=== PATIENT | female | born 1950 | race Caucasian/White ===

== ENCOUNTER 2020-11-11 19:15 | Emergency (ER) | payer MEDICARE, OTHER, SELFPAY ==
[2020-11-11 19:20] VITALS: BP 118/73; PULSE 97; RESP 18; TEMP 37; O2SAT 95; BMI 32.9
== END 2020-11-11 21:12 | disposition left against medical advice (07) ==
LOC: HO.ED 21:10
PROVIDERS: Emergency Provider Emergency Medicine; PCP Pediatrics
DX: Z04.1 Encounter for examination and observation following transport accident (principal)
CPT/HCPCS: 99281; 99282

== ENCOUNTER 2020-12-12 16:09 | Outpatient (REF) | payer MEDICARE, OTHER, SELFPAY ==
[2020-12-12 18:21] LABS: Amphetamine Screen Urine POSITIVE (Not Detect); Barbiturates, Urine Not Detected (Not Detect); Benzodiazepines Screen Urine Not Detected (Not Detect); Cannabinoid Screen Urine Not Detected (Not Detect); Cocaine Screen Urine Not Detected (Not Detect); Fentanyl, urine Not Detected (Not Detect); Opiate Screen Urine Not Detected (Not Detect); Phencyclidine Screen Urine Not Detected (Not Detect)
== END 2020-12-12 16:10 | disposition home or self-care (01) ==
LOC: HO.LAB 16:09
PROVIDERS: PCP Pediatrics; Visit Provider Psychiatry & Neurology Psychiatry
DX: F19.10 Other psychoactive substance abuse, uncomplicated (principal); Z79.899 Other long term (current) drug therapy
CPT/HCPCS: 80307

== ENCOUNTER 2020-12-15 16:32 | Outpatient (REF) | payer MEDICARE, OTHER, SELFPAY ==
[2020-12-15 17:30] LABS: Amphetamine Screen Urine POSITIVE (Not Detect); Barbiturates, Urine Not Detected (Not Detect); Benzodiazepines Screen Urine Not Detected (Not Detect); Cannabinoid Screen Urine Not Detected (Not Detect); Cocaine Screen Urine Not Detected (Not Detect); Fentanyl, urine Not Detected (Not Detect); Opiate Screen Urine Not Detected (Not Detect); Phencyclidine Screen Urine Not Detected (Not Detect)
== END 2020-12-15 16:33 | disposition home or self-care (01) ==
LOC: HO.LAB 16:32
PROVIDERS: Visit Provider Psychiatry & Neurology Psychiatry
DX: F19.10 Other psychoactive substance abuse, uncomplicated (principal); Z79.899 Other long term (current) drug therapy
CPT/HCPCS: 80307

== ENCOUNTER 2020-12-16 14:35 | Outpatient (REF) | payer MEDICARE, OTHER, SELFPAY ==
[2020-12-16 15:40] LABS: Amphetamine Screen Urine POSITIVE (Not Detect)
[2020-12-20 07:19] LABS: Methamphetamine, Urine GC/MS NEGATIVE
== END 2020-12-16 14:36 | disposition home or self-care (01) ==
LOC: HO.LABR 14:35
PROVIDERS: PCP Pediatrics; Visit Provider Psychiatry & Neurology Psychiatry
DX: F19.10 Other psychoactive substance abuse, uncomplicated (principal); Z79.899 Other long term (current) drug therapy
CPT/HCPCS: 80307; 80324

== ENCOUNTER 2020-12-17 16:38 | Outpatient (REF) | payer MEDICARE, OTHER, SELFPAY ==
[2020-12-17 18:02] LABS: Amphetamine Screen Urine POSITIVE (Not Detect)
== END 2020-12-17 16:39 | disposition home or self-care (01) ==
LOC: HO.LABR 16:38
PROVIDERS: PCP Pediatrics; Visit Provider Psychiatry & Neurology Psychiatry
DX: F19.10 Other psychoactive substance abuse, uncomplicated (principal); Z79.899 Other long term (current) drug therapy
CPT/HCPCS: 80307; 80324

== ENCOUNTER 2020-12-19 14:01 | Outpatient (REF) | payer MEDICARE, OTHER, SELFPAY ==
[2020-12-19 15:08] LABS: Amphetamine Screen Urine POSITIVE (Not Detect)
== END 2020-12-19 14:02 | disposition home or self-care (01) ==
LOC: HO.LABR 14:01
PROVIDERS: PCP Pediatrics; Visit Provider Psychiatry & Neurology Psychiatry
DX: F19.10 Other psychoactive substance abuse, uncomplicated (principal); Z79.899 Other long term (current) drug therapy
CPT/HCPCS: 80307; 80324

== ENCOUNTER 2020-12-22 15:55 | Outpatient (REF) | payer MEDICARE, OTHER, SELFPAY ==
[2020-12-22 17:17] LABS: Amphetamine Screen Urine POSITIVE (Not Detect)
== END 2020-12-22 15:56 | disposition home or self-care (01) ==
LOC: HO.LABR 15:55
PROVIDERS: PCP Pediatrics; Visit Provider Psychiatry & Neurology Psychiatry
DX: F19.10 Other psychoactive substance abuse, uncomplicated (principal)
CPT/HCPCS: 80307; 80324